=== PATIENT | male | born 1985 | race Caucasian/White ===

== ENCOUNTER 2018-02-18 17:00 | Emergency (ER) | payer OTHER ==
[~2018-02-18] VITALS: Ht 170.2 cm; Wt 72.6 kg
[2018-02-18 17:01] VITALS: BP 159/93; Ht 170.2 cm; Wt 72.6 kg
== END 2018-02-18 17:30 | disposition other institution (70) ==
LOC: ED 17:00
DX: F19.959 Other psychoactive substance use, unspecified with psychoactive substance-induced psychotic disorder, unspecified (principal); S21.112A Laceration without foreign body of left front wall of thorax without penetration into thoracic cavity, initial encounter; X58.XXXA Exposure to other specified factors, initial encounter; Y93.89 Activity, other specified; Y92.89 Other specified places as the place of occurrence of the external cause; Y99.8 Other external cause status
CPT/HCPCS: 82962; Q0092

== ENCOUNTER 2018-02-18 17:00 | Emergency (ER) | payer OTHER | END 2018-02-18 17:30 | disposition other institution (70) | LOC: ED 17:00 | DX: Z02.89 Encounter for other administrative examinations (principal) ==

== ENCOUNTER 2019-02-04 15:39 | Inpatient (IN) | payer MEDICAID ==
[~2019-02-04] VITALS: Ht 170.2 cm; Wt 77.1 kg
[2019-02-04 15:57] VITALS: Ht 170.2 cm; Wt 77.1 kg
--- NOTE | 2019-02-04 16:05 | NUR ---
PT BIB [facility] ON 5150 HOLD. PT WAS FOUND PUNCHING A TREE TODAY, CAUSING INJURY TO HIMSELF. PER [place] OFFICER, PT HAS HX OF BIPOLAR DISORDER. PT DENIES ANY MEDICAL HX. PT DENYING ANY SI, BUT STATES "I PLAN ON HURTING MY ADVERSARIES." PT UNWILLING TO FURTHER EXPLAIN. PT ALSO UNWILLING TO ANSWER MULTIPLE QUESTIONS. PT WAS UNCOOPERATIVE WITH PD AND MEDICAL STAFF. PT PLACED IN 4POINT RESTRAINTS. +PMSC TO ALL EXTREMITIES. WILL CONTINUE TO MONITOR PT. PT IS AWAKE AND ALERT, UNWILLING TO ANSWER MOST QUESTIONS, BUT ANSWERING SOME QUESTIONS APPROPRIATELY. RESP E/U, NAD NOTED. PT PLACED ON AED TRAINER AND PULSE OXIMETRY. IN DIRECT SIGHT OF NURSE'S STATION.
--- NOTE | 2019-02-04 16:24 | NUR ---
MSE COMPLETED BY DR BARR.
--- NOTE | 2019-02-04 16:50 | NUR ---
PT BELONGINGS PLACED IN RADIO RM. PT AWARE HE IS ON A 5150 HOLD.
[2019-02-04 16:58] LABS: BASOPHIL % 0.2 % (0-2); RED CELL DISTRIBUTION WIDTH 13.4 % (11.5-14.5)
[2019-02-04 17:00] LABS: PLATELET COUNT 436 x10^3mcL (130-400)
[2019-02-04 17:07] LABS: CALCIUM 9.5 mg/dL (8.5-10.1); CARBON DIOXIDE 26.3 mmol/L (21-32); CHLORIDE SERUM 106 mmol/L (98-107); GFR1 > 60 mL/min; GLUCOSE SERUM 92 mg/dL (74-106); POTASSIUM SERUM 3.7 mmol/L (3.5-5.1); SODIUM SERUM 144 mmol/L (136-145)
[2019-02-04 17:20] LABS: ALBUMIN 4.1 g/dL (3.4-5.0); ALKALINE PHOSPHATASE 125 U/L (46-116); ALT/SGPT 57 U/L (16-63); AST/SGOT 41 U/L (15-37); BILIRUBIN TOTAL 0.5 mg/dL (0.20-1.00); T4(THYROXINE) 8.4 ug/dL (4.7-13.3); TOTAL PROTEIN, SERUM 7.8 g/dL (6.4-8.2)
--- NOTE | 2019-02-04 17:28 | NUR ---
PT SLEEPING ON GURNEY, AROUSABEL WHEN SPOKEN TO, RESP E/U, CURRENTLY CALM/COOPERATIVE, NO ACUTE DISTRESS NOTED AT THIS TIME.
--- NOTE | 2019-02-04 18:52 | NUR ---
TAKEN OFF RESTRAINTS TO ATTEMPT TO GIVE URINE SAMPLE WITH URINAL. PT UNABLE TO PROVIDE SAMPLE. PT AAOX4, RESP E/U, CURRENTLY CALM/COOPERATIVE, WITHIN VIEW OF NURSES STATION, NO ACUTE DISTRESS NOTED AT THIS TIME.
--- NOTE | 2019-02-04 18:53 | NUR ---
PT GIVEN WATER AND SANDWICH.
--- NOTE | 2019-02-04 19:22 | NUR ---
RECIEVED REPORT FROM FRANKLIN HENDRICKS RN, I WILL ASSUME FURTHER CARE OF THIS PATIENT.
--- NOTE | 2019-02-04 19:22 | NUR ---
REPORT GIVEN TO CHECO VELOZ TO ASSUME CARE OF PT.
--- NOTE | 2019-02-04 19:51 | NUR ---
PT LAYING IN POSITION OF COMFORT, PT DENIES ANY SI/HI. PT STATED "I HEAR A VOICE THAT TELLS ME NOT TO DO THINGS. I TRY TO GET ASHISH SARKAR OUT OF ME THATS HOW I GOT MY SCAR ON MY FOREHEAD." PT STATED "I HAVE A TENDENCY TO HAVE VIOLENCE BUT MY GOOD CONCIOUS TELLS ME NOT TO." PT DENIES ANY PAIN. PT HAVING FLIGHT OF IDEAS AT THIS TIME. PT IS AAOX4, NO DISTRESS NOTED, PT IS CALM AND COOPERATIVE, PT FOLLOWS COMMANDS AND VERBALIZES NEEDS, RESP E/U, HEALING ABRASION NOTED 5TH DIGIT OF LEFT HAND AND HEALED SCAR NOTED TO LEFT SIDE OF FOREHEAD. SI PRECAUTIONS IN PLACE, PT IN VIEW OF THE NURSE STATION. PT AWARE THE NEED TO OBTAIN URINE SAMPLE. WILL CONT TO MONITOR.
--- NOTE | 2019-02-04 20:35 | NUR ---
PT USED URINAL AT THE BEDSIDE, PT CHAPERONED BY EMT RADHA, OBTAINED URINE SAMPLE AND SENT TO THE LAB.
--- NOTE | 2019-02-04 21:08 | NUR ---
GAVE PATIENT A SANDWICH AND MILK TO EAT PER PATIENT REQUEST. PT ATE 100% OF SANDWICH AND 90ML MILK. PT IN VIEW OF NURSE STATION, SI PRECAUTIONS IN PLACE. WILL CONT TO MONITOR.
[2019-02-04 21:21] LABS: AMPHETAMINE QUAL UR POSITIVE (See below)
--- NOTE | 2019-02-04 21:39 | NUR ---
INFORMED BY SECURITY THAT PT HAD ONE ARM RESTRAINT ON. UPON ENTERING ROOM, PT NOTED TO HAVE ONE RESTRAINT ON UPPER RIGHT EXTREMITY. PT STATED HE PUT RESTRAINT ON HIMSELF BECAUSE HE FELT HE WAS GOING TO HURT BABY ASHISH. ASKED PT IF HE FEELS SAFER WITH THE RESTRAINT, PT REPLIED "FOR NOW". IN FORMED PT THAT HE DOES NOT NEED TO BE ON RESTRAINTS AT THIS TIME. PT GAVE UNDERSTANDING AND REMOVED THE RESTRAINT HIMSELF. PT THEN ASKED IF HE WOULD BE SLEEPING HERE, INFORMED PT THAT HE WOULD BE FOR NOW. THEN PT ASKED IF THERE WAS A MUTE BOTTON FOR THE EMERGENCY DEPT AND LAUGHED. PT DOES APPEAR TO MILDLY HAVE FLIGHT OF THOUGHTS, REMAINS COOPERATIVE AND LAYING IN POSITION OF COMFORT. PT REMAINS IN VIEW FROM NURSES STATION.
--- NOTE | 2019-02-04 22:32 | NUR ---
PT CHAPARRONED TO RESTROOM BY EMT RADHA, PT AMBULATED WITH A STEADY GAIT. NO DISTRESS NOTED.
--- NOTE | 2019-02-04 22:37 | NUR ---
PT RETURNED TO [facility] FROM [facility] CHAPERONED BY EMT RADHA.
--- NOTE | 2019-02-05 00:18 | NUR ---
CHAPERONED PT TO RESTROOM. PT AMBULATED WITH A STEADY GAIT TO RESTROOM AND BACK WITHOUT INCIDENT.
--- NOTE | 2019-02-05 00:59 | NUR ---
PT SLEEPING COMFORTABLY IN BED. BREATHING EASY AND UNLABORED. NOTED TO CHANGE POSITION AND IN NO OBVIOUS DISTRESS AT THIS TIME. WILL CONTINUE TO MONITOR ON BEHALF OF PRIMARY CARE RN UNTIL SHE RETURNS TO FLOOR.
--- NOTE | 2019-02-05 01:30 | NUR ---
PT RESTING IN LEFT SIDE LAYING POSITION OF COMFORT WITH EYES CLOSED, AROUSABLE TO VOICE, PT IN NO DISTRESS, RESP E/U, PT IN VIEW OF THE NURSE STATION, SI PRECAUTIONS IN PLACE, BED IN LOWEST POSITION, SIDERAIL X2 UP FOR SAFETY. WILL CONT TO MONITOR.
--- NOTE | 2019-02-05 03:00 | NUR ---
PT IN RIGHT SIDE LAYING POSITION PF COMFORT WITH EYES CLOSED, AROUSABEL TO TOUCH, NO DISTRESS NOTED, RESP E/U, VITAL SIGNS REMAIN STABLE, PT REMAINS IN VIEW OF NURSE STATION AND SI PRECAUTIONS ARE IN PLACE, SIDE RAIL X2 UP FOR SAFETY AND BED IN LOWEST POSITION, WILL CONT TO MONITOR.
--- NOTE | 2019-02-05 05:05 | NUR ---
PT RESTING IN POSITION OF COMFORT, PT RESTING WITH EYES CLOSED, AROUSABLE TO VOICE, VITAL SIGNS REMAIN STABLE, SI AND SAFETY PRECUATIONS REMAIN IN PLACE, BED IN LOWEST POSITION, SIDE RAIL X2 UP FOR SAFETY, PT IN NO DISTRESS, RESP E/U. PT IN VIEW OF THE NURSE STATION, WILL CONT TO MONITOR.
--- NOTE | 2019-02-05 07:17 | NUR ---
REPORT GIVEN TO CANDI KESSLER WHO WILL ASSUME FURTHER CARE OF THIS PATIENT.
--- NOTE | 2019-02-05 07:20 | NUR ---
RECEIVED PATIENT ON THE BED, PATIENT IS AAO X 4 (NAME, DATE, CONDITION AND LOCATION). EYES - SHE. MUCUS - PINK. LUNG - CTA. SR ON MONITOR, HR = 94%. BS PRESENT X 4 QUADRANTS. B/L UPPER AND LOWER EXT PULSES PALPABLE. PATIENT DENIES ANY PAIN AT THIS TIME. PATIENT AMBULATED TO BATHROOM WITH STEADY GAIT. WILL CONTINUE TO MONITOR//APR RN
--- NOTE | 2019-02-05 07:52 | NUR ---
Received report from shift leader. [facility] still looking for placement. Packets were faxed to the following facilities: [facility]
--- NOTE | 2019-02-05 10:00 | NUR ---
PATIENT SLEEPING, BUT EASILY AROUSABLE.//APR RN
--- NOTE | 2019-02-05 12:50 | NUR ---
PATIENT AMBULATED TO RESTROOM WITH STEADY GAIT.//APR RN
--- NOTE | 2019-02-05 13:23 | NUR ---
REPORT GIVEN TO CHECO ARAYA FOR ROOM 212B.//APR RN
--- NOTE | 2019-02-05 13:35 | NUR ---
RECEIVED PT FROM Luis DOCKERY. VERBALLY RESPONSIVE, FOLLOWS COMMANDS. PT DENIES SUICIDAL THOUGHTS AND THOUGHTS TO HARM OTHERS. LUNG SOUNDS CTA, ON R/A. NORMAL S1S2 NOTED. ABDOMEN SOFT, NONTENDER, NONDISTENDED. BOWEL SOUNDS ACTIVE X4 QUADS. PERIPHERAL PULSES MODERATELY PALPABLE. NO EDEMA NOTED. PT HAS SCATTERED SMALL SCAB ON BILATERAL HANDS. 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 PICTURES TAKEN, SIGNED BY JEISON YANG AND PLACED IN CHART. IV CATH N/S LOCKED TO LAC. SITE WNL. NO S/S OF INFECTION OR INFILTRATIONS. PT DENIES PAIN AT THIS TIME.
[2019-02-05 14:01] VITALS: BP 135/96
--- NOTE | 2019-02-05 14:07 | NUR ---
RECEIVED PT FROM ED VIA JOHANNA. ORIENTED PT TO ROOM AND SURROUNDINGS. IV NOTED TO LAC PATENT AND INTACT. INSTRUCTED PT ON THE USE OF CALL LIGHT FOR ASSISTANCE. ENDORSED PT TO PRIMARY NURSE QUIANA
--- NOTE | 2019-02-05 14:25 | NUR ---
FLU VACCINE GIVEN IN L DELTOID. PT CALM AND COOPERATIVE. MDS RN AT BEDSIDE ON ONE TO ONE SUPERVISION. CALL LIGHT WITHIN REACH.
--- NOTE | 2019-02-05 15:57 | NUR ---
PT SLEEPING COMFORTABLY. RESP EVEN AND UNLABORED. NO S/S OF OF DISTRESS NOTED. CALL LIGHT WITHIN REACH. [facility] STAFF IN ROOM ON ONE TO ONE SUPERVISION.
[2019-02-05 17:45] VITALS: BP 128/91
--- NOTE | 2019-02-05 18:09 | NUR ---
PT IS AAOX4. RESP EVEN AND UNLABORED. NO DISTRESS NOTED. IV CATH TO LAC, SITE WNL. NO S/S OF INFECTION. PT DENIES PAIN AT THIS TIME. CALL LIGHT WITHIN REACH. BED IN LOWEST POSTION. SOCIAL DIRECTOR IN ROOM ON ONE TO ONE SUPERVISION. WILL ENDORSE ALL CARE TO NOC RN.
--- NOTE | 2019-02-05 19:10 | NUR ---
PT RECEIVED A/O X4, ABLE TO MAKE NEEDS KNOWN. MED-SURG, DENIES ANY CP/PRESSURE. PULSES PALPABLE, NO EDEMA PRESENT. BREATHING IS EVEN AND UNLABORED ON RA, DENIES SOB, NO RESP DISTRESS NOTED. ABD SOFT AND NONDISTENDED, DENIES N/V. VOIDS FREELY, BRP. AMBULATORY WITH STEADY GAIT. SMALL SCATTERED SCABS NOTED TO JAMES HANDS, RAND. PT DENIES HAVING ANY PAIN AT THIS TIME. PT ADMITTED FOR 5150 HOLD, PT DENIES HAVING ANY SI OR HALLUCINATIONS, SITTER AT BEDSIDE. SL TO LAC, PATENT AND INTACT, SITE WNL. NO ACUTE DISTRESS NOTED. BED IN LOWEST SETTING, SIDE RAILS UP X2, CALL LIGHT WITHIN REACH. WILL CONT TO MONITOR.
[2019-02-05 21:31] VITALS: BP 126/79
--- NOTE | 2019-02-06 01:50 | NUR ---
PT TRANSFERRED TO ROOM 204 A. NO ACUTE DISTRESS NOTED. SITTER AT BEDSIDE. CALL LIGHT WITHIN REACH. WILL CONT TO MONITOR MONITOR.
--- NOTE | 2019-02-06 04:25 | NUR ---
Follow up calls were made to the following [facility] facilities regarding bed placement, no bed vacancies during shift. [facility], spoke with Joanna. [facility], spoke with Andreia. [facility], spoke with Lenin. [facility], spoke with Brenda. [facility], spoke with Shiela. [facility], spoke with Melissa. [facility], spoke with Saturnino. [facility] will continue to call for bed placement.
--- NOTE | 2019-02-06 06:01 | NUR ---
PT SLEPT WELL THROUGHOUT THE EVENING. BREATHING IS EVEN AND UNLABORED, NO RESP DISTRESS NOTED. PT DENIES HAVING ANY PAIN AT THIS TIME. NO ACUTE CHANGES ENCOUNTERED DURING SHIFT. ALL NEEDS MET AND ANTICIPATED. SAFETY PRECAUTIONS MAINTAINED. SL TO LAC INTACT. SITTER AT BEDSIDE. CALL LIGHT WITHIN REACH. WILL ENDORSE CARE TO AM NURSE.
--- NOTE | 2019-02-06 06:16 | NUR ---
[facility] still actively working on finding placement for this pt. No openings overnight per nightshift. Will contact with any updates.
[2019-02-06 06:50] LABS: BASOPHIL % 0.2 % (0-2); PLATELET COUNT 380 x10^3mcL (130-400); RED CELL DISTRIBUTION WIDTH 13.2 % (11.5-14.5)
[2019-02-06 07:02] LABS: CALCIUM 8.2 mg/dL (8.5-10.1); CARBON DIOXIDE 29.1 mmol/L (21-32); CHLORIDE SERUM 106 mmol/L (98-107); CREATININE SERUM 0.9 mg/dL (0.7-1.3); GFR1 > 60 mL/min; GLUCOSE SERUM 90 mg/dL (74-106); POTASSIUM SERUM 3.8 mmol/L (3.5-5.1); SODIUM SERUM 141 mmol/L (136-145)
[2019-02-06 07:03] VITALS: BP 123/78
--- NOTE | 2019-02-06 07:10 | NUR ---
RECEIVED PT FROM RICHARD RN. PT RESTING IN BED WITH BOTH EYES CLOSED. NO S/S OF ACUTE DISTRESS. NO SOB ON ROOM AIR. NO S/S OF PAIN. 5150 HOLD DANGER TO SELF. SITTER AT BEDSIDE. IV WNL TO LAC, PATENT AND FLUSHES WELL. BED IN LOW POSITION. CALL LIGHT WITHIN REACH. WILL CONT. TO MONITOR.
[2019-02-06 09:34] VITALS: BP 110/72
--- NOTE | 2019-02-06 12:15 | NUR ---
PT LAYING IN BED. AA/OX4. PT HAD SHOWER, TOLERATED ACTIVITY WELL. SITTER AT STANDBY. NO S/S OF ACUTE DISTRESS. NO SOB ON ROOM AIR. DENIES SUICIDAL/HOMICIDAL IDEATION. FOLLOWS COMPLEX COMMANDS. BEHAVIOR APPROPRIATE. ANSWERS QUESTIONS APPROPRIATELY. SPEECH CLEAR. MOOD CALM/COOPERATIVE. IV WNL TO LAC, NO REDNESS, NO SWELLING, NO INFILTRATION. SALINE LOCKED, FLUSHES WELL. SITTER AT BEDSIDE. [address] WILL CONT. TO MONITOR.
--- NOTE | 2019-02-06 12:38 | NUR ---
Discount pharmacy card and list to low cost medical clinics given to patient by Kb Van.
[2019-02-06 17:00] VITALS: BP 138/85
--- NOTE | 2019-02-06 18:29 | NUR ---
PT AA/OX4 LAYING IN BED. DENIES SUICIDAL/HOMICIDAL IDEATION. NO S/S OF ACUTE DISTRESS. IV WNL TO LAC, PATENT AND FLUSHES WELL. SALINE LOCKED. CALM/COOPERATIVE. SITTER AT BEDSIDE. [address] BED IN LOW POSITION. CALL LIGHT WITHIN REACH. WILL ENDORSE TO ONCOMING SHIFT.
--- NOTE | 2019-02-06 19:00 | NUR ---
REPORT RECEIVED FROM DAY SHIFT RN. PATIENT WAS SEEN RESTING COMFORTABLY IN BED DRINKING COFFEE. SITTER AT BEDSIDE. BREATHING EVEN AND UNLABORED ON ROOM AIR. NO SOB NOTED. DENIES CHEST PAIN/PRESSURE. NO C/O PAIN. IV TO THE LAC. SALINE LOCK. PATENT AND INTACT. NO REDNESS OR SWELLING NOTED. DENIES SUICIDAL IDEATION AT THIS TIME. COMFORT AND SAFETY MEASURES IN PLACE. BED IS LOCKED AND IN THE LOWEST POSITION. CALL LIGHT IS WITHIN REACH. WILL CONTINUE TO MONITOR.
[2019-02-06 20:36] VITALS: BP 127/84
--- NOTE | 2019-02-07 01:10 | NUR ---
PATIENT RESTING IN BED W/ EYES CLOSED. NO DISTRESS NOTED. BREATHING EVEN AND UNLABORED ON ROOM AIR. NO SOB NOTED. EVEN CHEST RISE AND FALL. SAFETY MEASURES IN PLACE. CALL LIGHT IS WITHIN REACH. WILL CONTINUE TO MONITOR.
--- NOTE | 2019-02-07 05:35 | NUR ---
Follow up calls were made through out shift, there were no updates on bed placement and will endorse to oncoming shift.
--- NOTE | 2019-02-07 05:53 | NUR ---
RESTED IN LONG INTERVALS THROUGHOUT THE NIGHT. NO ACUTE CHANGES NOTED. NO DISTRESS NOTED. BREATHING EVEN AND UNLABORED ON ROOM AIR. NO SOB OR RESP DISTRESS NOTED. DENIES CHEST PAIN/PRESSURE. NO C/O PAIN THROUGHOUT THE NIGHT. IV SALINE LOCK TO THE LAC. PATENT AND INTACT. NO REDNESS OR SWELLING NOTED. DENIES SUICIDAL IDEATIONS THROUGHOUT THE NIGHT. SITTER AT BEDSIDE. ALL NEEDS AND CONCERNS ADDRESSED. SAFETY MEASURES IN PLACE. CALL LIGHT IS WITHIN REACH. WILL ENDORSE CARE TO DAY SHIFT RN.
[2019-02-07 05:58] VITALS: BP 116/68
--- NOTE | 2019-02-07 06:06 | NUR ---
[facility] to continue actively looking for placement for this pt. Will contact with any updates. No openings overnight per nightshift.
--- NOTE | 2019-02-07 07:25 | NUR ---
RECEIVEDE REPORT FROM MARINE SERVICES TECHNICIAN NURSE PT SLEEPING BUT AROUSABE. A&O X4, IV PATENT AND INTACT ON LAC, DENIES PAIN AT THIS TIME, LUNGS CTA BILAT. ALL QUESTIONS AND CONCERNS ADDRESSED AT THIS TIME. BED IN LOW POSITION CALL LIGHT WITHIN REACH. WILL CONTINUE TO MONITOR.
[2019-02-07 08:27] VITALS: BP 113/72
--- NOTE | 2019-02-07 09:05 | NUR ---
PT LYING IN BED AWAKE. OFFERED COLACE PER JUN PT REFUSED STATED "I DO NOT NEED THAT I POOP FINE" ALL NEEDS ATTENDED TO AT THIS TIME. SITTER AT BEDSIDE AND SAFETY PRECAUTIONS IN PLACE. BED IN LOW POSITION CALL LIGHT WITHIN REACH. WILL CONTINUE TO MONITOR.PT DENIES PAIN AT THIS TIME .
--- NOTE | 2019-02-07 10:01 | NUR ---
DR. KAY AT BEDSIDE ORDERED CLEAR LIQUID DIET. WILL PROCEED WITH ORDERS DIRECTED. FAMILY AT BEDSIDE. ADMINISTERED LEVACIN FOR ABD PAIN 10/23. WILL REASSES IN 1 HR. NO ADVERSE AFFECTS NOTED AT THIS TIME. CALL LIGHT WITHIN REACH BED IN LOW POSITION. WILL CONTINNUE TO MONITOR.
--- NOTE | 2019-02-07 12:45 | NUR ---
PATIENT SITTING UP IN BED EATING LUNCH. PT TOLERATING WELL. ALL QUESTIONS AND CONCERNS ADDRESSED AT THIS TIME. SITTER AT BEDSIDE SAFETY PRECAUTIONS IN PLACE. WILL CONTINUE TO MONITOR.
--- NOTE | 2019-02-07 15:41 | NUR ---
PATIENY LYING IN BED ASLEEP IN NO APARENT DISTRESS. ALL NEEDS ATTENDED TO AT THIS TIME. BED IN LOW POSITION CALL LIGHT WITHIN REACH. WILL CONTINUE TO MONITOR.
[2019-02-07 18:00] VITALS: BP 125/78
--- NOTE | 2019-02-07 18:12 | NUR ---
PATIENT SITTING UP IN BED WITH FAMILY AT BEDSIDE. PT AMBULATED 3 TIMES AROUND TODAY AND HAD 3 LOOSE STOOLS DENIES ANY BEEDING OR PAIN AT THIS TIME. ALL NEEDS ATTENDED TO AT THIS TIME. ADMINISTERED SCHEDULED MEDS PER JUN. NO ADVERSE REACTIONS NOTED. WILL CONTINUE TO MONITOR.
--- NOTE | 2019-02-07 18:15 | NUR ---
Received report from outgoing shift. Patient is waiting for a psych re-eval. will await outcome of re-eval
--- NOTE | 2019-02-07 18:17 | NUR ---
PT TO SHOWER PER DR ORDERS. PT SITTING UP IN BED. DENIES PAIN AT THIS TIME . ALL NEEDS ATTENDED TO AT THIS TIME. SAFETY PRECAUTIONS IN PLACE. WILL CONTINUE TO MONITOR.
--- NOTE | 2019-02-07 19:00 | NUR ---
PT LYING IN BED IN NO APARENT DISTRESS. IV PATENT AND INTACT. PT DENIES PAIN AT THIS TIME. ALL QUESTIONS AND CONCERNS ADDRESSED WILL ENDORSE CARE TO STEEL SASH ERECTOR NURSE. SITTER AT BEDSIDE. CALL LIGHT WITHIN REACH
--- NOTE | 2019-02-07 19:05 | NUR ---
REPORT RECEIVED FROM DAY SHIFT RN. PATIENT WAS SEEN RESTING COMFORTABLY IN BED. NO DISTRESSS NOTED. A/OX4. BREATHING EVEN AND UNLABORED ON ROOM AIR. NO SOB OR RESP DISTRESS NOTED. DENIES CHEST PAIN/PRESSURE. NO C/O PAIN. IV TO THE LAC. SALINE LOCK. PATENT AND INTACT. NO REDNESS OR SWELLING NOTED. SITTER AT BEDSIDE. DENIES SUICIAL IDEATIONS AT THIS TIME. COMFORT AND SAFETY MEASURES IN PLACE. BED IS LOCKED AND IN THE LOWEST POSITION. SIDE RAILS UP X2. CALL LIGHT IS WITHIN REACH. WILL CONTINUE TO MONITOR.
[2019-02-07 19:47] VITALS: BP 118/88
--- NOTE | 2019-02-08 01:04 | NUR ---
RESTING IN BED WITH EYES CLOSED. NO DISTRESS NOTED. BREATHING EVEN AND UNLABORED ON ROOM AIR. EVEN CHEST RISE AND FALL. NO S/S OF PAIN NOTED. SAFETY MEASURES IN PLACE. CALL LIGHT IS WITHIN REACH. SITTER AT BEDSIDE. WILL CONTINUE TO MONITOR.
[2019-02-08 04:59] VITALS: BP 119/70
--- NOTE | 2019-02-08 05:52 | NUR ---
Will endorse to incoming shift to monitor and continue with placement once re-evaled by psych
--- NOTE | 2019-02-08 05:57 | NUR ---
Will endorse to incoming shift to monitor and continue to seek placement if still needed.
--- NOTE | 2019-02-08 05:59 | NUR ---
RESTED IN LONG INTERVALS THROUGHOUT THE NIGHT. NO ACUTE CHANGES NOTED. NO DISTRESS NOTED. BREATHING EVEN AND UNLABORED. NO SOB NOTED. NO C/O PAIN THROUGHOUT THE NIGHT. DENIES CHEST PAIN. ALL NEEDS AND CONCERNS ADDRESSED. SAFETY MEASURES IN PLACE. SITTER AT BEDSIDE. CALL LIGHT IS WITHIN REACH. WILL ENDORSE CARE TO DAY SHIFT RN.
--- NOTE | 2019-02-08 07:10 | NUR ---
RECEIVED BEDSIDE REPORT FROM MUSIC REHABILITATION THERAPIST NURSE AT THIS TIME. PATIENT RESTING COMFORTABLY IN BED. NO APPARENT DISTRESS OR DISCOMFORT NOTED. BREATHING EVEN AND UNLABORED. NO RESPIRATORY DISTRESS OR DISCOMFORT NOTED. PATIENT DENIES CHEST PAIN/PRESSURE. IV PATENT AND INTACT. ALL QUESTIONS AND CONCERNS ADDRESSED. ALL NEEDS ATTENDED. WILL CONTINUE TO MONITOR
[2019-02-08 09:30] VITALS: BP 119/70
--- NOTE | 2019-02-08 10:00 | NUR ---
PATIENT REFUSED COLACE AT THIS TIME. PATIENT STATES DOES NOT NEED STOOL SOFTNER. ALL NEEDS ATTENDED TO. WILL CONTINUE TO MONITOR
--- NOTE | 2019-02-08 10:06 | NUR ---
PATIENT REQUESTING TO BE DISCHARGED AROUND [phone] DUE TO HIS RIDE NOT ARRIVING UNTIL [phone]. AWAITING TRANSPORTATION AT THIS TIME. WILL CONTINUE TO MONITOR
[2019-02-08 10:36] VITALS: BP 134/73
--- NOTE | 2019-02-08 13:10 | NUR ---
PATIENT STABLE TO BE DISCHARGED TO HOME. DISCHARGE INSTRUCTIONS GIVEN WELL EDUCATION. INSTRUCTED PATIENT ABOUT FOLLOW UP APPOINTMENT. PATIENT VERBALIZES UNDERSTANDING. IV REMOVED WITH CATH INTACT. ID BANDS REMOVED. ALL BELONGINGS WITH PATIENT. ALL QUESTIONS AND CONCERNS ADDRESSED. PATIENT HAS HOMELESS RESOURCES. PER PATIENT HE WAS GETTING PICKED UP BY HIS BOSS AND IS STAYING AT HIS MOTHERS HOUSE IN [place]. ALL NEEDS ATTENDED TO. ESCORTED DOWN TO LOBBY AT THIS TIME
== END 2019-02-08 13:10 | disposition home or self-care (01) | DRG 812 ==
LOC: ED 15:39 → MU 02-05 12:37 → DU 02-05 12:37 → EDBEDREQ 02-05 12:43 → MU 02-05 13:28
PROVIDERS: Emergency Medicine; ADMIT General Practice
DX: T43.621A Poisoning by amphetamines, accidental (unintentional), initial encounter (principal); G92 Toxic encephalopathy; R45.851 Suicidal ideations; F15.90 Other stimulant use, unspecified, uncomplicated
CPT/HCPCS: 90658; G0378; G0480